=== PATIENT | female | born 1995 | race African-American/Black ===

== ENCOUNTER 2018-03-02 11:24 | Emergency (ER) | payer OTHER ==
[2018-03-02 11:58] LABS: #Basophils 0.1 thou/uL (0.0-0.2); #Eosinphils 0.1 thou/uL (0.0-0.7); #Lymphocytes 1.8 thou/uL (1.20-3.40); #Monocytes 0.4 thou/uL (0.11-0.59); #Neutrophils 3.2 thou/uL (1.40-6.50); %Basophils 1.1 % (0.0-1.0); %Eosinophils 1.6 % (0.0-10.0); %Lymphocytes 32.5 % (28.0-48.0); %Monocytes 7.6 % (0.0-4.0); %Neutrophils 57.3 % (31.0-61.0); Hemoglobin 12.5 g/dL (12.0-16.0); Mean Corpuscular HGB CONC 33.3 g/dL (32.0-36.0); Mean Corpuscular Volume 84.2 fl (77.0-87.0); Mean Platelet Volume 8.7 fL (7.4-10.4); Platelet Count 267 thou/uL (130-400); Red Blood Cell (RBC) Count 4.46 mill/uL (4.00-5.20); White Blood Cell (WBC) Count 5.6 thou/uL (4.8-10.8)
[2018-03-02 12:18] LABS: ALT (SGPT) Less than 7 U/L (8-55); AST (SGOT) 15 U/L (5-34); Albumin 4.6 g/dL (3.5-5.0); Alkaline Phosphatase 62 U/L (40-150); Anion Gap 11 mmol/L (10-20); BUN (Urea Nitrogen) 8 mg/dL (7.0-18.7); Bilirubin, Total 1.3 mg/dL (0.2-1.2); CK (CPK) 104 U/L (29-168); Calc. Creatinine Clearance 0 mL/min (70-130); Calcium 9.9 mg/dL (7.8-10.44); Carbon Dioxide 26 mmol/L (22-29); Chloride 105 mmol/L (98-107); Estimated GFR-MDRD Greater than 90; Globulin 2.9 g/dL (2.4-3.5); Glucose 103 mg/dL (70-105); Potassium 3.9 mmol/L (3.5-5.1); Protein, Total 7.5 g/dL (6.0-8.3); Sodium 138 mmol/L (136-145)
[2018-03-02 12:22] LABS: CKMB 0.3 ng/mL (0-6.6); Troponin I Less than 0.010 ng/mL (< 0.028)
[2018-03-02 12:45] LABS: Bilirubin Negative (Negative); Blood, Urine Negative (Negative); Clarity CLOUDY (Clear); Glucose, Urine (Dipstick) Negative (Negative); Leukocyte Small (Negative); Nitrite Negative (Negative); Protein, Urine (Dipstick) Negative (Neg-Trace); Specific Gravity, Urine 1.023 (1.002-1.036)
[2018-03-02 12:46] LABS: Bacteria/HPF Rare-Few HPF (None Seen); Hyaline Casts/LPF 7-10 HYALINE CAST LPF (0-3 Hyaline); Pathc Cast-AUWi Flag 1.74 (0-2.49)
[2018-03-02 12:47] LABS: Pregnancy Test - Urine (BHCG) Negative (Negative); Pregu Control Background? CLEAR/WHITE (CLR/WHITE); Pregu Control Bar Appear? YES (CONTROL BAR); Specific Gravity 1.023 (1.002-1.036)
== END 2018-03-02 14:26 | disposition home or self-care (01) ==
LOC: ERS 11:24
DX: R55 Syncope and collapse (principal)
CPT/HCPCS: 36416; 80053; 81003; 81015; 81025; 82553; 84484; 85025; 93005; 94760

== ENCOUNTER 2018-04-26 15:52 | Outpatient (CLI) | payer OTHER | END 2018-04-26 15:53 | disposition home or self-care (01) | LOC: BICULT 15:52 | PROVIDERS: ATTEND Nurse Practitioner | DX: D24.1 Benign neoplasm of right breast (principal) ==

== ENCOUNTER 2018-12-23 08:04 | Outpatient (CLI) | payer BC, OTHER ==
--- NOTE | 2018-12-23 09:44 | ULT ---
RIGHT BREAST ULTRASOUND: HISTORY: A right breast mass is seen at the 10 o'clock and 9 o'clock positions of the right breast on prior ul trasound. COMPARISON: 04/26/2018 and 09/17/2017 FINDINGS: There are three masses seen in the right breast. Only two were previously identified and the additio nal mass was likely present but just not imaged on the prior examination. The largest mass is seen a t the 9 o'clock position of the right breast and is well circumscribed with increased through transmi ssion. This measures 2.2 cm in greatest dimension. This is table compared to the measurement from 1 11/18/2016. There are two masses at the 11 o'clock position of the right breast. One of them is 4 cm from the ni pple and measures 1 cm in greatest dimension. The other is 8 cm from the nipple and also measures 1 cm in greatest dimension. 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 No suspicious shadowing or suspicious mass is seen. IMPRESSION: BI-RADS category 2-Benign findings. POS: [facility]
== END 2018-12-23 08:05 | disposition home or self-care (01) ==
LOC: BICULT 08:04
PROVIDERS: ATTEND Nurse Practitioner
DX: D24.1 Benign neoplasm of right breast (principal)